=== PATIENT | male | born 1955 | race Caucasian/White ===

== ENCOUNTER 2020-05-17 09:13 | Day surgery (SDC) | payer BC ==
[~2020-05-17] VITALS: Ht 188 cm; Wt 123.3 kg
[2020-05-17] MEDS ORDERED: TRICOR145 MG PO (10:01)
[2020-05-17 10:02] VITALS: BP 155/70; PULSE 61; TEMP 98.1
[2020-05-17] MEDS ORDERED: ZETIA 10MG TAB10 MG PO (10:02)
[2020-05-17] MEDS ORDERED: LIPITOR 10MG10 MG PO (10:02)
[2020-05-17 12:14] VITALS: BP 126/71; PULSE 61; TEMP 98.4
--- NOTE | 2020-05-17 12:14 | NUR ---
The patient arrived back to [facility] from the operating room at this time. The patient appears alert and oriented and denies any pain or nausea at this time. The patient's post operative vital signs were started at this time. The patient has a dressings to his right and left foot that appear clean, dry and intact. The patient has post op shoes in place to his feet bilaterally. Post operative vital signs were started at this time. The patient's is at his bedside at this time. Will continue to monitor the patient.
[2020-05-17 12:29] VITALS: BP 109/61; PULSE 57
[2020-05-17] MEDS ORDERED: PERCOCET 325 MG1 TA2 PO (12:29)
--- NOTE | 2020-05-17 12:29 | NUR ---
The patient was given some coffee and water to try at this time. Dr. Childs is at the patient's bedside to speak with him and his regarding the procedure. Vital signs appear stable. Will continue to monitor the patient.
[2020-05-17 12:44] VITALS: BP 131/69; PULSE 55
--- NOTE | 2020-05-17 12:44 | NUR ---
The patient has finished his coffee and appeared to tolerate it well. The patient denies wanting anything further to eat or drink at this time. The patient continues to deny any pain or nausea at this time.
--- NOTE | 2020-05-17 12:59 | NUR ---
Discharge instructions were reviewed with the patient and his at this time. They both verbalized understanding and have no questions for the nurse at this time. The patient's IV to his left hand was removed and a pressure dressing was applied to the site. The nurse instructed the patient to get dressed and notify the staff when he is ready to be escorted out.
--- NOTE | 2020-05-17 13:10 | NUR ---
The patient was escorted out via wheelchair to a private vehicle by [facility]. The patient's belongings and discharge paperwork. The patient's is present to drive him home.
== END 2020-05-17 13:10 | disposition home or self-care (01) ==
LOC: SDCO 09:13
DX: M20.11 Hallux valgus (acquired), right foot (principal); M21.611 Bunion of right foot; M77.9 Enthesopathy, unspecified; E78.5 Hyperlipidemia, unspecified; K21.9 Gastro-esophageal reflux disease without esophagitis; E79.0 Hyperuricemia without signs of inflammatory arthritis and tophaceous disease; Z90.49 Acquired absence of other specified parts of digestive tract
CPT/HCPCS: C1713; J0690; J1885; J2250; J2704; J3010; J7120